=== PATIENT | female | born 1970 | race Caucasian/White ===

== ENCOUNTER 2024-09-18 11:02 | Emergency (ER) | payer BC ==
[2024-09-18] MEDS: Adenosine 12 MG/4 ML SDV ONE (11:09)
[2024-09-18] MEDS: Sodium Chloride 0.9% 1,000 ML IV ONE (11:11)
[2024-09-18] MEDS ORDERED: Sodium Chloride 0.9% 10 ML Syringe FLUSH PRN (11:26)
[2024-09-18 11:33] LABS: BASOPHILS PERCENT AUTO 0.3 % (0.0-1.0); EOSINOPHILS PERCENT AUTO 0.5 % (1.0-3.0); HEMATOCRIT 42.3 % (37.0-47.0); LYMPHOCYTES PERCENT AUTO 25.5 % (20.5-50.1); MEAN CORPUSCULAR HEMOGLOBIN 27.8 pg (27.0-34.0); MEAN CORPUSCULAR HGB CONC 33.1 g/dL (33.0-35.0); MEAN CORPUSCULAR VOLUME 83.9 fL (80-100); MONOCYTES PERCENT AUTO 10.3 % (2-8); NEUTROPHILS PERCENT AUTO 63.4 % (42.2-75.2); PLATELET COUNT,PLT 283 10^3/uL (150-450); RED BLOOD CELL COUNT 5.04 10^6/uL (4.2-5.4); WHITE BLOOD CELL COUNT,WBC 9.8 10^3/uL (5.0-10.0)
[2024-09-18 11:51] LABS: A/G RATIO 0.8; ALBUMIN 3.4 g/dL (3.4-5.0); ANION GAP 10.2 mEq/L (7-13); BILIRUBIN TOTAL 0.4 mg/dL (0.2-1.0); BUN/CREATININE RATIO 20.7 (No establ ref range); C-REACTIVE PROTEIN 1.56 ng/dL (<=0.50); CALCIUM 9.1 mg/dL (8.5-10.1); CREATININE 0.92 mg/dL (0.55-1.02); EST CRCL DRUG DOSING (CG) 62.9 mL/min; MAGNESIUM 1.7 mg/dL (1.8-2.4); POTASSIUM,K 3.2 mmol/L (3.5-5.1); PROTEIN TOTAL,TP 7.6 g/dL (6.4-8.2); T4 FREE 1.18 ng/dL (0.76-1.46); TSH ULTRASENSITIVE 2.88 uIU/mL (0.36-3.74)
[2024-09-18] MEDS: Adenosine 6 MG/2 ML SDV IVPUSH ONE (11:58)
[2024-09-18] MEDS: Potassium Chloride 10 MEQ Tab.ER PO ONE (12:03)
[2024-09-18] MEDS: Magnesium Sulf/Wat 2 GM/50 mL 2 GM in Premix Bag 1 BAG IV ONE (12:09)
[2024-09-18 12:52] LABS: APPEARANCE,URINE CLEAR (CLEAR); BILIRUBIN,URINE NEGATIVE (NEGATIVE); COLOR,URINE YELLOW (YELLOW); GLUCOSE,URINE NEGATIVE (NEGATIVE); KETONES,URINE NEGATIVE (NEGATIVE); LEUKOCYTE ESTERASE,URINE NEGATIVE (NEGATIVE); NITRITE,URINE NEGATIVE (NEGATIVE); OCCULT BLOOD,URINE TRACE-INTACT (NEGATIVE); PROTEIN,URINE NEGATIVE (NEGATIVE); UROBILINOGEN,URINE 0.2 mg/dL (0.2-1.0)
[2024-09-18 13:15] LABS: BACTERIA,URINE MODERATE /HPF (0-FEW/HPF); EPITHELIAL CELLS,URINE FEW /HPF (NOT SEEN); WBC,URINE 0-5 /HPF (0-5/HPF)
== END 2024-09-18 13:09 | disposition home or self-care (01) ==
LOC: DL.ED 11:02
DX: I47.10 Supraventricular tachycardia, unspecified (principal)
CPT/HCPCS: 36415; 80053; 81001; 83735; 84439; 84443; 84484; 85025; 86140; 93005; 96361; 96365; 99285; A9270; J0153; J3475; J7030; 93010